=== PATIENT | female | born 1935 | race Caucasian/White ===

== ENCOUNTER → 2016-10-15 | Day surgery (SDC) | payer OTHER ==
[~2016-10-15] VITALS: Ht 167.6 cm; Wt 89.8 kg
[~2016-10-15] MED LIST: AMOX-CLAV 875-1 EACH PO; AMOXIL500 MG PO; ASPIRIN ADULT L81 M2 PO; CARTIA XT120 M1 PO; CRESTOR20 M1 PO; CRESTOR20 M2 PO; CRESTOR20 MG PO; ECOTRIN81 MG PO; FOLIC ACID 1 MG PO; GLIPIZIDE ER2.5 M1 PO; GLIPIZIDE5 MG PO; HYDROCHLOROTHIA25 M1 PO; HYDRODIURIL 112.5 M1 PO; HYDRODIURIL 2525 MG PO; IRON325 M3 PO; K-DUR 20MEQ TA20 MEQ PO; KLOR-CON20 MEQ PO; KOMBIGLYZE XR 11 TER PO; KOMBIGLYZE XR1 EAC2 PO; LEVOTHYROXIN0.088 MG PO; LEVOTHYROXINE100 MC1 PO; LISINOPRIL20 M1 PO; LISINOPRIL40 MG PO; LOPRESSOR 25MG25 MG PO; MACROBID 100 M100 MG PO; MASON NATURAL325 MG PO; NEIGHBOR P PO; PAROXETINE HYDR20 MG PO; PAROXETINE20 MG PO; PAXIL20 M1 PO; SUPER B PO; SYNTHROID0.1 MG PO; SYNTHROID100 MCG PO; SYNTHROID88 MCG PO; TAZTIA XT300 MG PO; TYLENOL #31 TAB PO; VITAMIN B121000 MC2 PO; VITAMIN C250 M1 PO; VITAMIN C500 M1; VITAMIN D1000 IU PO; ZESTRIL40 MG PO
--- NOTE | 2016-10-15 11:55 | Operative Report ---
Operative/Inv Procedure Report Surgery Date: 10/15/16 Name of Procedure: cystoscopy: bilateral retrograde pyelogram Pre-Operative Diagnosis: gross hematuria Post-Operative Diagnosis: urethral mass Estimated Blood Loss: scant Surgeon/Product Delivery Specialist: NOHEMI ANGELA MD Anesthesia: moderate sedation Specimens: none Complications: none Operative/Procedure Note Note: The patient was taken to the operating room and placed on the OR table in supine position. Time out was performed, with the patient awake, to confirm correct identity, laterality, procedure, and other pertinent intra-operative information. After adequate anesthesia and antibiotics, the patient was then placed lithotomy stirrups draped and prepped in the usual surgical fashion. A 22 Khmer cystoscope sheath with a 30 angle lens was inserted without difficulty. Upon entering the bladder, the bladder was noted to be free of tumor free of stone, with both orifices in their orthotopic position. Bilateral clear efflux of urine was seen from both orifices. The left orifice was intubated with an open ended ureteral catheter and retrograde pyelogram was performed revealing no stone/tumor and brisk excretion of contrast material. After removing the catheter from the left side, the right orifice was intubated, and retrograde pyelogram was performed on the right side. There was no filling defect on the right side as well, with brisk efflux of contrast. Having found NO pathology on either side, the bladder was then hydrodistended 2 with the irrigation fluid at 40 cm above the symphysis pubis. No increased petechiae was noted. No Hunner's ulceration was noted. Of note the patient has a mildly denuded bladder with hypervascularity consistent with history of IC. There was no terminal bleed. After completing the retrograde pyelograms bilaterally, and the hydrodistention, the bladder was then drained and the cystoscope was removed. The pt. tolerated the procedure well was then taken to the recovery room in satisfactory condition. The patient is to be discharged home to follow up in few weeks time for re-evaluation and plans. 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 Discharge Disposition: Same Day Admissions Additional Comments: to schedule pelvic MRI with manpreet. CC: NOHEMI ANGELA MD
--- NOTE | 2016-10-16 11:24 | RADIOLOGY REPORT ---
EXAMINATION: XR ABDOMEN CLINICAL INDICATION: Bilateral ureteroscopy. COMPARISON: X-ray of the kidneys dated 06/26/2016. Ultrasound of the kidneys dated 06/26/2016. TECHNIQUE: 5 views of the abdomen were obtained from a bilateral retrograde pyelogram. FINDINGS: The right-sided pelvicalyceal system and proximal ureter appear relatively unremarkable. There is some mild fullness which may be secondary to injection. On the left, the pelvicalyceal system is not as well filled and there is a question of some irregularity or filling defects but this cannot be assessed from the submitted films. IMPRESSION: Imaging from retrograde pyelogram as described above.
== END ==
LOC: STS 03:54
DX: R31.0 Gross hematuria (principal); N36.8 Other specified disorders of urethra; I10 Essential (primary) hypertension; E11.9 Type 2 diabetes mellitus without complications; Z79.84 Long term (current) use of oral hypoglycemic drugs; E03.9 Hypothyroidism, unspecified; E78.5 Hyperlipidemia, unspecified
CPT/HCPCS: 74000; J0131; J0690; J2250

== ENCOUNTER 2017-11-24 19:45 | Observation (INO) | payer OTHER ==
[~2017-11-24] VITALS: Ht 167.6 cm; Wt 89.8 kg
[~2017-11-24 19:45] MED LIST changes: -ASPIRIN ADULT L81 M2 PO; +ASPIRIN81 M4 PO; +KLOR-CON M2020 ME1 PO; -KLOR-CON20 MEQ PO; -KOMBIGLYZE XR1 EAC2 PO; +KOMBIGLYZE XR1 EACH PO; -LISINOPRIL20 M1 PO; +LISINOPRIL40 M1 PO; +METOPROLOL TART25 M1 PO
--- NOTE | 2017-11-24 20:08 | ED GENERAL ADULT ---
History of Present Illness General Chief Complaint: General Adult Stated Complaint: SENT FOR BLOOD TRANSFUSION Source: patient, family, old records, PCP Exam Limitations: no limitations Vital Signs & Intake/Output Vital Signs & Intake/Output Vital Signs Date Time Temp Pulse Resp B/P B/P Pulse O2 O2 Flow FiO2 Mean Ox Delivery Rate 11/25 0858 97.9 77 22 190/79 98 Room Air 11/25 0652 97.7 80 22 182/79 98 Room Air 11/25 0603 98.0 88 24 180/79 99 Room Air 11/25 0536 97.7 70 16 131/67 98 Room Air 11/25 0219 97.6 72 16 142/67 98 Room Air 11/24 2233 97.1 87 22 141/66 11/24 2204 97.1 87 22 141/66 97 Room Air 11/24 1955 97.5 92 18 166/79 99 Room Air ED Intake and Output 11/25 0000 11/24 1200 Intake Total Output Total Balance Patient 198 lb Weight Weight Reported by Patient Measurement Method Allergies Coded Allergies: ciprofloxacin (From CIPRO) (DIARRHEA 10/10/16) Triage Note: 82F HERE FOR BLOOD TRANSFUSION AFTER BLOOD COUNTS TODAY WERE LOW. ARRIVES PALE, REPORTS WEAKNESS AND DIZZINESS, FATIGUE. DENIES SOB AT REST BUT CHRISTENSEN. DENIES BLACK OR BLOODY STOOLS. DENIES ABD PAIN -N/V/D. DENIES CP OR PALPITATIONS. IV ESTABLISHED IN TRIAGE AND BLOOD DRAWN AND SENT TO LAB (BLUE SSTX2 LAV BROWN PINK) Triage Nurses Notes Reviewed? yes HPI: Patient has been having increasing dyspnea on exertion. Patient denies any chest pain or chest tightness. There is no orthopnea. There is no anorexia. Patient attempted to follow-up with her restaurant hospitality manager. He was on vacation so she saw her row boss. She had outpatient blood work which showed H&H of 03/18. Patient was instructed transfusion. Patient does have an appointment with her restaurant hospitality manager for next week. Patient has required transfusions in the past. (Kristen FERGUSON,Aj Cramer) Reconcile Medications Aspirin (Aspirin*) 81 MG TAB.CHEW 1 TAB PO DAILY HEART (Reported) Diltiazem HCl (Cartia Xt) 120 MG CAP.ER.24H 1 CAP PO DAILY HEART (Reported) Ferrous Sulfate (IRON) 325 MG TABLET 1 TAB PO TID SUPPLEMENT (Reported) Glipizide (Glipizide ER) 2.5 MG TAB.ER.24 1 TAB PO DAILY DIABETES (Reported) Hydrochlorothiazide 25 MG TABLET 1 TAB PO AD BP (Reported) Levothyroxine Sodium 100 MCG TABLET 1 TAB PO DAILY THYROID (Reported) Lisinopril 40 MG TABLET 1 TAB PO DAILY BP (Reported) Metoprolol Tartrate 25 MG TABLET 1 TAB PO BID HEART (Reported) Paroxetine HCl (Paxil) 20 MG TABLET 1 TAB PO DAILY DEPRESSION (Reported) Potassium Chloride (Klor-Con M20) 20 MEQ TAB.ER.PRT 1 TAB PO DAILY SUPPLEMENT (Reported) Rosuvastatin Calcium (Crestor) 20 MG TABLET 1 TAB PO DAILY CHOLESTEROL ( Reported) Saxagliptin HCl/Metformin HCl (Kombiglyze XR 5-500 MG Tablet) 5 MG-500 MG TBMP.24HR 1 TAB PO DAILY DIABETES (Reported) (Antonina FERGUSON,Kirk) Past History Travel History Traveled to [place] past 21 day No Medical History Any Pertinent Medical History? see below for history Neurological: NONE EENT: NONE Cardiovascular: hypertension, hyperlipidemia, aortic valve replacement Respiratory: NONE Gastrointestinal: hx of angiodysplasia hx of gastritis hx diverticular disease Hepatic: CHOLEDOCHOLITHIASIS Renal: NONE Musculoskeletal: NONE Psychiatric: NONE Endocrine: diabetes, hypothyroidism, CALCIUM DEPOSITS ON THYROID Blood Disorders: anemia Cancer(s): breast cancer OFFICE ADMINISTRATOR/Reproductive: hx of ovarian mass History of MRSA: No History of VRE: No History of CDIFF: No Surgical History Surgical History: hysterectomy (TOTAL), Partial Thyroidectomy, Modified radical disssection of the right breast, Hysterectomy, CABG, AVR GALL STONE REMOVAL ERCP Psychosocial History Who do you live with Significant Other Services at Home None What is your primary language Setswana Tobacco Use: Never used ETOH Use: denies use Illicit Drug Use: denies illicit drug use Family History Hx Contributory? No (Kristen FERGUSON,Aj Cramer) Review of Systems Review of Systems Constitutional: Reports: no symptoms. EENTM: Reports: no symptoms. Respiratory: Reports: see HPI, short of breath (WITH EXERTION). Cardiovascular: Reports: no symptoms. GI: Reports: no symptoms. Genitourinary: Reports: no symptoms. Musculoskeletal: Reports: no symptoms. Skin: Reports: no symptoms. Neurological/Psychological: Reports: no symptoms. Hematologic/Endocrine: Reports: no symptoms. Immunologic/Allergic: Reports: no symptoms. All Other Systems: Reviewed and Negative (Kristen FERGUSON,Aj Cramer) Physical Exam Physical Exam General Appearance: well developed/nourished, alert, awake, anxious, moderate distress Head: atraumatic, normal appearance Eyes: Bilateral: PERRL, EOMI, pale conjunctivae. Ears, Nose, Throat: normal pharynx, normal ENT inspection, hearing grossly normal Neck: normal inspection, supple, full range of motion Respiratory: normal breath sounds, chest non-tender, no respiratory distress, lungs clear Cardiovascular: regular rate/rhythm, normal peripheral pulses Gastrointestinal: normal bowel sounds, soft, non-tender, no organomegaly Back: normal inspection, normal range of motion Extremities: normal inspection, normal capillary refill, normal range of motion, no edema, [place] Neurologic/Psych: no motor/sensory deficits, awake, alert, oriented x 3, normal mood/affect Skin: warm/dry, PALE Core Measures ACS in differential dx? No CVA/TIA Diagnosis: No Sepsis Present: No Sepsis Focused Exam Completed? No (Kristen FERGUSON,Aj Cramer) Progress Differential Diagnoses I considered the following diagnoses in my evaluation of the patient: Plan of Care: Orders Procedure Date/time Status Heart Healthy Diet 11/25 B Active BLOOD PRODUCT PICKUP 11/25 0552 Active BLOOD PRODUCT PICKUP 11/25 0138 Active BLOOD PRODUCT PICKUP 11/24 220 Active LEUKOCYTE POOR (PACKED CELLS) 11/[address] in observation 11/24 2018 Active ED Holding Orders 11/24 2018 Active Patient Data 11/24 2018 Active Vital Signs 11/24 2018 Active Code Status 11/24 2018 Active Intake & Output 11/24 2002 Active EKG 11/24 1952 Active TROPONIN LEVEL 11/24 1946 Complete COMPREHENSIVE METABOLIC PANEL 11/24 1946 Complete CBC WITHOUT DIFFERENTIAL 11/24 1946 Complete TYPE & SCREEN (NOT X-MATCH) 11/24 1946 Active Laboratory Tests 11/24/17 2000: Anion Gap 11, Estimated GFR 39 L, BUN/Creatinine Ratio 17.7, Glucose 194 H, Calcium 8.8, Total Bilirubin 0.7, AST 15, ALT 24, Alkaline Phosphatase 63, Troponin I 0.01, Total Protein 6.1 L, Albumin 3.6, Globulin 2.5, Albumin/ Globulin Ratio 1.4, CBC w Diff NO MAN DIFF REQ, RBC 2.37 L, MCV 83.8, MCH 25.6 L, MCHC 30.5 L, RDW 23.3 H, MPV 8.3, Gran % 77.2 H, Lymphocytes % 8.5 L, Monocytes % 12.0 H, Eosinophils % 1.6, Basophils % 0.7, Absolute Granulocytes 3.1, Absolute Lymphocytes 0.3 L, Absolute Monocytes 0.5, Absolute Eosinophils 0.1, Absolute Basophils 0 Initial ED EKG: NSR, nonspecific ST T wave chg Prior EKG: unchanged Hand-Off Endorsed To: Kirk Sarkar MD Endorsed Time: 0700 Pending: other (TRANSFUSION) (Aj Peterson MD) Comments: Family requested consultation from Dr. Castillo today. He saw her in the office yesterday OVEN HEATER and she can schedule followup. (Kirk Sarkar MD) Departure Departure Clinical Impression Primary Impression: Symptomatic anemia Referrals: Darci Sorto MD (PCP/Family) Marco Antonio Pascual MD Additional Instructions: FOLLOW UP WITH DR. PASCUAL RETURN IF SYMPTOMS WORSEN OR FOR ANY CONCERNS Departure Forms: Customer Survey General Discharge Information (Aj Peterson MD) Departure Time of Disposition: 1051 Disposition: HOME OR SELF CARE Condition: Stable (Kirk Sarkar MD) Critical Care Note Critical Care Note Critical Care Time: non-applicable (Aj Peterson MD) ED Attending Observation Initial Observation Note: I have seen and personally examined CHRISTOPHER LEE on 11/24/17 at 2019. I agree with the current emergency department documentation. The disposition (admission or discharge) is uncertain at this time, she needs a period of observation for the following reason(s): [Symptomatic anemia. Patient will require 3 units of packed red blood cells deliver slowly. Patient will need close observation given her cardiac history and the amount of fluid that she will be receiving with the blood transfusion. If the patient is feeling better after the transfusion she will be discharged with follow-up with her restaurant hospitality manager however if she is not feeling any better she might require admission to the hospital.] The ED Nurse caring for this patient has been personally informed as to what the patient is being observed for. Observation Re-Evaluation: I have reevaluated CHRISTOPHER LEE on 11/25/17 at 0454. The physical findings that support the continued need to observe this patient include [PT RESTING COMFORTABLE WHILE RECEIVING THE TRANSFUSION. COLOR IMPROVING. NO CHEST PAIN, NO SHORTNESS OF BREATH. LUNGS CTA B/L, ABD SOFT.]. (Kristen FERGUSON,Aj Cramer) Observation Discharge: I have reevaluated CHRISTOPHER LEE on 11/25/17 at 1050. The patient is: (x): Stable for discharge (): To be admitted to Nursing Floor (): To be placed in Observation on Nursing Floor (): For transfer to other facility The patient was being observed for symptomatic anemia As a result of that observation, I have determined stable for discharge home. (Antonina FERGUSON,Kirk)
[2017-11-24 20:55] LABS: ABSOLUTE BASOPHIL COUNT 0 /CUMM (0.0-0.2); ABSOLUTE EOSINOPHIL COUNT 0.1 /CUMM (0.0-0.7); ABSOLUTE GRANULOCYTE CT 3.1 /CUMM (1.4-6.5); ABSOLUTE LYMPH COUNT 0.3 /CUMM (1.2-3.4); ABSOLUTE MONOCYTE COUNT 0.5 /CUMM (0.10-0.60); BASOPHIL % 0.7 % (0.0-2.0); EOSINOPHIL % 1.6 % (0-5); GRANULOCYTE % 77.2 % (42.2-75.2); MEAN CORPUSCULAR HGB 25.6 PG (27.0-31.0); MEAN CORPUSCULAR HGB CONC 30.5 G/DL (33.0-37.0); MEAN CORPUSCULAR VOLUME 83.8 FL (81.0-99.0); MEAN PLATELET VOLUME 8.3 FL (7.4-10.4); PLATELET COUNT 163 /CUMM (130-400); RBC DISTRIBUTION WIDTH 23.3 % (11.5-14.5); RED BLOOD CELL CT 2.37 /CUMM (4.20-5.40); WHITE BLOOD CELL COUNT 4.1 /CUMM (4.8-10.8)
[2017-11-24 20:59] LABS: HEMATOCRIT 19.8 % (37-47)
[2017-11-25] MEDS ORDERED: CARTIA XT120 M1 PO (08:05)
[2017-11-25 11:32] VITALS: BP 158/70
== END 2017-11-25 12:00 ==
LOC: ERH 19:45 → ERHI 20:19
PROVIDERS: Emergency Medicine
DX: D64.9 Anemia, unspecified (principal); E11.9 Type 2 diabetes mellitus without complications; Z79.84 Long term (current) use of oral hypoglycemic drugs; E03.9 Hypothyroidism, unspecified; I10 Essential (primary) hypertension; E78.5 Hyperlipidemia, unspecified; K29.70 Gastritis, unspecified, without bleeding; K55.20 Angiodysplasia of colon without hemorrhage; K57.90 Diverticulosis of intestine, part unspecified, without perforation or abscess without bleeding; Z85.3 Personal history of malignant neoplasm of breast; Z95.2 Presence of prosthetic heart valve; R06.02 Shortness of breath; Z95.1 Presence of aortocoronary bypass graft
CPT/HCPCS: 6090; 86920; 93005; 93010; 96374; G0378; J1940; P9016

== ENCOUNTER 2018-03-12 09:31 | Inpatient (IN) | payer OTHER ==
[~2018-03-12] VITALS: Ht 167.6 cm; Wt 84.0 kg
[~2018-03-12 09:31] MED LIST changes: +HYDROCHLOROTH12.5 M2 PO; -HYDROCHLOROTHIA25 M1 PO; -LEVOTHYROXINE100 MC1 PO; +LEVOTHYROXINE88 MCG PO
--- NOTE | 2018-03-12 11:27 | ED GENERAL ADULT ---
History of Present Illness General Chief Complaint: Nausea, Vomiting, Diarrhea Stated Complaint: SENT IN BY MD JAUREGUI FOR DIARRHEA Source: patient Exam Limitations: no limitations Vital Signs & Intake/Output Vital Signs & Intake/Output Vital Signs Date Time Temp Pulse Resp B/P B/P Pulse O2 O2 Flow FiO2 Mean Ox Delivery Rate 03/12 1800 97 Room Air 03/12 1635 97.7 74 16 165/68 97 Room Air 03/12 1330 97.7 59 18 159/70 98 Room Air 03/12 0936 96.4 63 15 134/61 98 Room Air Room Air Allergies Coded Allergies: ciprofloxacin (From CIPRO) (DIARRHEA 03/12/18) Reconcile Medications Aspirin (Aspirin*) 81 MG TAB.CHEW 1 TAB PO DAILY HEART (Reported) Diltiazem HCl (Cartia Xt) 120 MG CAP.ER.24H 1 CAP PO DAILY HEART (Reported) Ferrous Sulfate (IRON) 325 MG TABLET 1 TAB PO TID SUPPLEMENT (Reported) Glipizide (Glipizide ER) 2.5 MG TAB.ER.24 1 TAB PO DAILY DIABETES (Reported) Hydrochlorothiazide 12.5 MG TABLET 1 TAB PO DAILY WATER RETENTION (Reported) Levothyroxine Sodium 88 MCG TABLET 1 TAB PO DAILY AC THYROID (Reported) Linagliptin (Tradjenta) 5 MG TABLET 1 TAB PO DAILY DIABETES (Reported) Lisinopril 40 MG TABLET 1 TAB PO DAILY BP (Reported) Metoprolol Succinate 50 MG TAB.ER.24H 1 TAB PO DAILY HEART (Reported) Paroxetine HCl (Paxil) 20 MG TABLET 1 TAB PO DAILY DEPRESSION (Reported) Potassium Chloride (Klor-Con M20) 20 MEQ TAB.ER.PRT 1 TAB PO DAILY SUPPLEMENT (Reported) Rosuvastatin Calcium (Crestor) 20 MG TABLET 1 TAB PO DAILY CHOLESTEROL ( Reported) Triage Note: PT SENT TO ED BY DR. MARILUZ CALIX FOR DIARRHEA. PT REPORTS SHE HAS HAD MULTIPLE EPISODES OF MUCUS-LIKE DIARRHEA X 5 DAYS. PT RECENTLY GOT BACK FROM A [place] AND HAS HAD SOME MILD LLQ ABD CRAMPING WITH THE DIARRHEA. DENIES N/V/CHILLS. NO ONE ELSE ON [place] HAS DIARRHEA. Triage Nurses Notes Reviewed? yes Onset: Gradual Duration: day(s): Timing: constant HPI: 83-year-old female with a history of hypertension, hyperlipidemia, aortic valve replacement, diabetes, hypothyroid, breast cancer, ovarian cancer presenting with lower abdominal pain with left greater than right, and mucous diarrhea 4 days after returning from a cruise to the [place]. No other travelers have been sick. Endorses fecal urgency and incontinence, with 3-4 episodes of diarrhea per day. Denies bloody stools. Endorses black stools at baseline secondary to iron supplements. Denies fevers, nausea, vomiting, dysuria. Is currently followed by Dr. Jauregui for intermittent bloody stools, and has a colonoscopy scheduled for Friday. (Lucia Beltran) Past History Travel History Traveled to [place] past 21 day No Medical History Any Pertinent Medical History? see below for history Neurological: NONE EENT: NONE Cardiovascular: hypertension, hyperlipidemia, aortic valve replacement Respiratory: NONE Gastrointestinal: hx of angiodysplasia hx of gastritis hx diverticular disease Hepatic: CHOLEDOCHOLITHIASIS Renal: NONE Musculoskeletal: NONE Psychiatric: NONE Endocrine: diabetes, hypothyroidism, CALCIUM DEPOSITS ON THYROID Blood Disorders: anemia Cancer(s): breast cancer CAREER RESOURCE SPECIALIST/Reproductive: hx of ovarian mass History of MRSA: No History of VRE: No History of CDIFF: No Surgical History Surgical History: hysterectomy (TOTAL), Partial Thyroidectomy, Modified radical disssection of the right breast, Hysterectomy, CABG, AVR GALL STONE REMOVAL ERCP Psychosocial History Who do you live with Significant Other Services at Home None What is your primary language Indonesian Tobacco Use: Never used ETOH Use: denies use Illicit Drug Use: denies illicit drug use Family History Hx Contributory? No (Lucia Beltran) Review of Systems Review of Systems Constitutional: Reports: no symptoms. EENTM: Reports: no symptoms. Respiratory: Reports: no symptoms. Cardiovascular: Reports: no symptoms. GI: Reports: see HPI. Genitourinary: Reports: no symptoms. Musculoskeletal: Reports: no symptoms. Skin: Reports: no symptoms. Neurological/Psychological: Reports: no symptoms. Hematologic/Endocrine: Reports: no symptoms. Immunologic/Allergic: Reports: no symptoms. (Lucia Beltran) Physical Exam Physical Exam General Appearance: well developed/nourished, no apparent distress, alert, awake , comfortable Head: atraumatic, normal appearance Eyes: Bilateral: normal appearance. Neck: normal inspection Respiratory: normal breath sounds, lungs clear Cardiovascular: regular rate/rhythm Gastrointestinal: soft, non-tender Rectal: heme positive stool (brown stool) Back: normal inspection Extremities: normal inspection Neurologic/Psych: awake, alert, oriented x 3, normal gait, normal mood/affect Skin: intact, normal color, warm/dry Core Measures ACS in differential dx? No CVA/TIA Diagnosis: No Sepsis Present: No Sepsis Focused Exam Completed? No (Joanne MORRIS,Lucia) Progress Differential Diagnoses I considered the following diagnoses in my evaluation of the patient: [Enteritis versus colitis versus diverticulitis versus food poisoning versus traveler's diarrhea] Plan of Care: Orders Procedure Date/time Status Heart Healthy Diet 03/12 D Active Precautions 03/12 1811 Active Weight 03/12 1744 Active Vital Signs 03/12 1744 Active Teach/Educate 03/12 1744 Active Pain Treatment and Response 03/12 1744 Active Nutritional Intake, Monitor 03/12 1744 Active Isolation 03/12 1744 Active Intake & Output 03/12 1744 Active Patient Care Conference 03/12 1744 Active Activity/Ambulation 03/12 1744 Active STOOL: R/O YERSINIA 03/12 1718 Active CULTURE,STOOL 03/12 1637 Active OVA AND PARASITE ANTIGENS 03/12 1637 Active Patient Data 03/12 1541 Active ED Holding Orders 03/12 1539 Active Admit to inpatient 03/12 1539 Active Vital Signs 03/12 1539 Active Code Status 03/12 1539 Active CULTURE,STOOL 03/12 1454 Active C.DIFFICILE 03/12 1454 Active Intake & Output 03/12 1153 Active URINALYSIS 03/12 1110 Complete LIPASE 03/12 1110 Complete HEPATIC FUNCTION PANEL 03/12 1110 Complete CBC WITHOUT DIFFERENTIAL 03/12 1110 Complete BASIC METABOLIC PANEL 03/12 1110 Complete Current Medications Sig/Demetra Start time Last Medication Dose Stop Time Status Admin Rifaximin 200 MG TID 03/12 1633 UNVr (Xifaxan 200MG) Laboratory Tests 03/12/18 1148: Anion Gap 10, Estimated GFR 39 L, BUN/Creatinine Ratio 13.1, Glucose 151 H, Calcium 9.1, Total Bilirubin 0.4, Direct Bilirubin 0.1, AST 24, ALT 30, Alkaline Phosphatase 57, Total Protein 5.9 L, Albumin 3.2 L, Lipase 580 H, CBC w Diff NO MAN DIFF REQ, RBC 3.20 L, MCV 84.4, MCH 27.6, MCHC 32.7 L, RDW 15.1 H, MPV 6.6 L, Gran % 81.7 H, Lymphocytes % 7.9 L, Monocytes % 8.6, Eosinophils % 1.1 , Basophils % 0.7, Absolute Granulocytes 4.4, Absolute Lymphocytes 0.4 L, Absolute Monocytes 0.5, Absolute Eosinophils 0.1, Absolute Basophils 0 03/12/18 1138: Urinalysis LIGHT H, Urine Color YEL, Urine Clarity CLEAR, Urine pH 6.0, Ur Specific [place] >= 1.030, Urine Protein TRACE H, Urine Ketones NEG, Urine Nitrite NEG, Urine Bilirubin NEG, Urine Urobilinogen 0.2, Ur Leukocyte Esterase TRACE H, Ur Microscopic SEDIMENT EXAMINED, Urine WBC 5-10 H, Ur Epithelial Cells MANY H, Urine Bacteria FEW H, Urine Hemoglobin NEG, Urine Glucose NEG Microbiology 03/12 1718 STOOL: Yersinia Culture - COLB 03/12 1637 STOOL: Cryptosporidium Antigen - COLB 03/12 1637 STOOL: Giardia Antigen (ELIGIO) - COLB 03/12 1637 STOOL: Stool Culture - COLB 03/12 1500 STOOL: Clostridium difficile Toxin A & B - RECD 03/12 1500 STOOL: Stool Culture - RECD Labs shows mild drop in Hg to 8.8 from 9.6 a month ago, pt's basline appears to be around 8-10. Discussed with Dr. Jauregui and will admit due to concern for worsening GI bleed in the setting of infection. Stool culture sent. Discussed with hospitalist, MOD, and EDMD. CT scan IMPRESSION: Heterogeneous 3.0-3.5 cm mass of the pancreatic head. Enlarged peripancreatic lymph nodes. This is new since 09/12/2015. Choledocholithiasis with 5 mm and 2 mm calculi and mild intrahepatic biliary ductal dilatation that has slightly increased. There is a soft tissue mass in the lower abdomen anteriorly, arising from or invading the posterior wall of a small bowel loop. This measures 4.4 x 4.7 x 5.1 cm and is a new finding. There is a 1.2 cm left renal lesion at the superior pole which measured 1.0 cm in 2014. Several lower lobe pulmonary nodules, the largest measuring 7 mm in the lingula and right lower lobe, which have slightly increased in size. Pt informed of the above incidental findings. Labs showed elevated lipase to 580. Suspect gallstone pancreatitis, although pt has benign abdominal exam. Discussed with Dr. Crain and he is aware of CT findings. Instructed to start xifaxan for traveler's diarrhea. Initial ED EKG: none (Lucia Beltran) Departure Departure Disposition: STILL A PATIENT Condition: Stable Clinical Impression Primary Impression: Gastrointestinal hemorrhage Secondary Impressions: Anemia, Travelers' diarrhea Referrals: Noreen FERGUSON,Darci Luque (PCP/Family) Departure Forms: Customer Survey General Discharge Information Admission Note Spoke With: Nalini Brower MD Documentation of Exam: Documentation of any treatments & extenuating circumstances including Concerns Regarding Discharge (functional status, medication knowledge or non-compliance, living conditions, etc.) that warrant an admission rather than observation: [IV fluids, hemodynamic monitoring, serial CBC's, abx, GI evaluation, possible ERCP] (Lucia Beltran) PA/DIAGNOSTIC RADIOLOGIST Co-Sign Statement Statement: ED Attending supervision documentation- [X] I saw and evaluated the patient. I have also reviewed all the pertinent lab results and diagnostic results. I agree with the findings and the plan of care as documented in the PA's/DIAGNOSTIC RADIOLOGIST's documentation. [X] I have reviewed the ED Record and agree with the PA's/DIAGNOSTIC RADIOLOGIST's documentation. [] Additions or exceptions (if any) to the PAs/DIAGNOSTIC RADIOLOGIST's note and plan are summarized below: [Patient to be admitted for lower GI bleed, gastroenterology consultation, may require colonoscopy, serial hematocrits] (Kristen FERGUSON,Aj Cramer) Critical Care Note Critical Care Note Critical Care Time: 30-74 min (Lucia Beltran)
[2018-03-12 11:59] LABS: ABSOLUTE BASOPHIL COUNT 0 /CUMM (0.0-0.2); ABSOLUTE EOSINOPHIL COUNT 0.1 /CUMM (0.0-0.7); ABSOLUTE GRANULOCYTE CT 4.4 /CUMM (1.4-6.5); ABSOLUTE LYMPH COUNT 0.4 /CUMM (1.2-3.4); ABSOLUTE MONOCYTE COUNT 0.5 /CUMM (0.10-0.60); BASOPHIL % 0.7 % (0.0-2.0); EOSINOPHIL % 1.1 % (0-5); GRANULOCYTE % 81.7 % (42.2-75.2); MEAN CORPUSCULAR HGB 27.6 PG (27.0-31.0); MEAN CORPUSCULAR HGB CONC 32.7 G/DL (33.0-37.0); MEAN CORPUSCULAR VOLUME 84.4 FL (81.0-99.0); MEAN PLATELET VOLUME 6.6 FL (7.4-10.4); PLATELET COUNT 246 /CUMM (130-400); RBC DISTRIBUTION WIDTH 15.1 % (11.5-14.5); WHITE BLOOD CELL COUNT 5.4 /CUMM (4.8-10.8)
[2018-03-12] MEDS ORDERED: TRADJENTA5 M1 PO (12:06)
[2018-03-12] MEDS ORDERED: METOPROLOL SUCC50 M2 PO (12:07)
--- NOTE | 2018-03-12 15:30 | CT SCAN REPORT ---
EXAMINATION: CT ABDOMEN AND PELVIS WITH CONTRAST CLINICAL INFORMATION: Lower abdominal pain with diarrhea COMPARISON: Clinical history studies, the most recent chest CT dictated 09/12/2015 TECHNIQUE: Multidetector volumetric imaging was performed of the abdomen and pelvis following IV administration of 95 mL of Optiray 320 intravenous contrast. Sagittal and coronal reformatted images were obtained on the technologist's workstation. DLP: 528 mGy-cm FINDINGS: LUNG BASES: Several nodules at the lung bases, including a 7 mm nodule in the lingula inferiorly, end a 7 mm nodule in the right lower lobe. These have slightly increased in size. LIVER, GALLBLADDER, AND BILIARY TREE: Mild biliary ductal dilatation, similar to the previous study. There are no liver lesions. Coarse calcifications of the gallbladder which are less prominent than the prior study. There is a 5 mm calcification within the mid aspect of the common bile duct, and a 2 mm calcification in the distal aspect of the common bile duct. PANCREAS: The pancreatic head is enlarged and slightly heterogeneous. This is new or significantly more conspicuous from the previous study and measures approximately 3 cm in size, concerning for a pancreatic mass. Pancreatic body is atrophied with a stable cyst/pseudocyst. SPLEEN: Unremarkable. ADRENAL GLANDS: Stable 1.5 cm low-density lesion in the left adrenal gland. KIDNEYS AND URETERS: There is a 1.2 cm lesion at the superior pole of the left kidney which is exophytic. This measured 1.0 cm on a 2015 study. BLADDER: Unremarkable. GASTROINTESTINAL TRACT: There is a soft tissue mass in the anterior lower abdomen measuring approximately 4.4 x 4.7 x 5.1 cm arising from or invading into the posterior wall of a pelvic small bowel loop. This is a new finding. ABDOMINAL WALL: No significant hernia is appreciated. LYMPH NODES: There are enlarged peripancreatic lymph nodes including a 1.7 lymph node at the bifurcation of the superior mesenteric artery. VASCULAR: Dilated and tortuous left ovarian vein as demonstrated previously. PELVIC VISCERA: The uterus is been removed. OSSEOUS STRUCTURES: No suspicious lesions or acute abnormality. IMPRESSION: Heterogeneous 3.0-3.5 cm mass of the pancreatic head. Enlarged peripancreatic lymph nodes. This is new since 09/12/2015. Choledocholithiasis with 5 mm and 2 mm calculi and mild intrahepatic biliary ductal dilatation that has slightly increased. There is a soft tissue mass in the lower abdomen anteriorly, arising from or invading the posterior wall of a small bowel loop. This measures 4.4 x 4.7 x 5.1 cm and is a new finding. There is a 1.2 cm left renal lesion at the superior pole which measured 1.0 cm in 2015. Several lower lobe pulmonary nodules, the largest measuring 7 mm in the lingula and right lower lobe, which have slightly increased in size.
--- NOTE | 2018-03-12 15:57 | History & Physical ---
Grayson FERGUSON,Marcia 03/12/18 1557: General Information and HPI MD Statement: I have seen and personally examined CHRISTOPHER LEE and documented this H&P. The patient is a 83 year old F who presented with a patient stated chief complaint of [diarrhea]. Source of Information: patient, family, old records Exam Limitations: no limitations History of Present Illness: Patient is an 83-year-old female with past medical history of hypertension, depression,chronic kidney disease, anxiety and depression, hypothyroidism, right sided breast cancer status post radical mastectomy, hysterectomy, ovarian cancer status post bilateral nephrectomy and recent completion of 8 week course of radiation therapy, history of chronic anemia requiring transfusions over the past few months, history of GI bleed s/p EGD and colonoscopy in 2011 showing cecal vascular malformation/ectasias, diverticulosis and gastritis, and enteroscopy showing small bowel bleeding secondary to GI angiodysplasia presenting this admission with chief complaint of diarrhea, dark stools and small amount of brb. Patient reports that she was recently on a cruise to the [facility] over the past 1-2 weeks. States that 4 days prior to admission while on the cruise she developed a signifcant amount of loose watery/semiformed stool. States that she has some mild abdominal cramping and fecal urgency. State she has had one or two accidents. Patient reports that she has seen some specks of bright red blood in the stools. Reports stool has been black. States that this is not significantly different than before as she takes iron supplements daily. Patient reported occasional lightheadedness. States that she has been eating however it appears to be making the diarrhea worse. Patient denies nausea/vomitting, fever/chills. Patient reports that no one else in close contact with her was sick. Patient reports that she is scheduled to have a colonoscopy with Dr. Jauregui on Friday for workup for her anemia. Patient reports she follow up with Dr. Mccarthy (oncologist) for her ovarian cancer. In the ED, patient had a CT Abdomen/Pelvis which revealed a pancreatic mass and a mass close to/invading the small intestine. Patient reports that this is a new finding for her. Allergies/Medications Allergies: Coded Allergies: ciprofloxacin (From CIPRO) (DIARRHEA 03/12/18) Home Med list Aspirin (Aspirin*) 81 MG TAB.CHEW 1 TAB PO DAILY HEART (Reported) Diltiazem HCl (Cartia Xt) 120 MG CAP.ER.24H 1 CAP PO DAILY HEART (Reported) Ferrous Sulfate (IRON) 325 MG TABLET 1 TAB PO TID SUPPLEMENT (Reported) Glipizide (Glipizide ER) 2.5 MG TAB.ER.24 1 TAB PO DAILY DIABETES (Reported) Hydrochlorothiazide 12.5 MG TABLET 1 TAB PO DAILY WATER RETENTION (Reported) Levothyroxine Sodium 88 MCG TABLET 1 TAB PO DAILY AC THYROID (Reported) Linagliptin (Tradjenta) 5 MG TABLET 1 TAB PO DAILY DIABETES (Reported) Lisinopril 40 MG TABLET 1 TAB PO DAILY BP (Reported) Metoprolol Succinate 50 MG TAB.ER.24H 1 TAB PO DAILY HEART (Reported) Paroxetine HCl (Paxil) 20 MG TABLET 1 TAB PO DAILY DEPRESSION (Reported) Potassium Chloride (Klor-Con M20) 20 MEQ TAB.ER.PRT 1 TAB PO DAILY SUPPLEMENT (Reported) Rosuvastatin Calcium (Crestor) 20 MG TABLET 1 TAB PO DAILY CHOLESTEROL ( Reported) Vancomycin HCl 125 MG CAPSULE 1 TAB PO Q6H C.DIF Past History Travel History Traveled to [place] past 21 day No Medical History Neurological: NONE EENT: NONE Cardiovascular: hypertension, hyperlipidemia, aortic valve replacement Respiratory: NONE Gastrointestinal: hx of angiodysplasia hx of gastritis hx diverticular disease Hepatic: CHOLEDOCHOLITHIASIS Renal: NONE Musculoskeletal: NONE Psychiatric: NONE Endocrine: diabetes, hypothyroidism, CALCIUM DEPOSITS ON THYROID Blood Disorders: anemia Cancer(s): breast cancer PSYCH SPECIALIST/Reproductive: hx of ovarian mass History of MRSA: No History of VRE: No History of CDIFF: No Surgical History Surgical History: hysterectomy (TOTAL), Partial Thyroidectomy, Modified radical disssection of the right breast, Hysterectomy, CABG, AVR GALL STONE REMOVAL ERCP Past Family/Social History Psychosocial History Who Do You Live With? self Services at Home: None Primary Language: Maldivian ETOH Use: denies use Illicit Drug Use: denies illicit drug use Functional Ability ADLs Independent: dressing, eating, toileting, bathing. Ambulation: independent IADLs Independent: shopping, housework, finances, food prep, telephone, transportation , medication admin. Review of Systems Review of Systems Constitutional: Reports: see HPI. Exam & Diagnostic Data Last 24 Hrs of Vital Signs/I&O Vital Signs Date Time Temp Pulse Resp B/P B/P Pulse O2 O2 Flow FiO2 Mean Ox Delivery Rate 03/12 1835 97.4 64 20 158/72 100 Room Air 03/12 1800 97 Room Air 03/12 1635 97.7 74 16 165/68 97 Room Air 03/12 1330 97.7 59 18 159/70 98 Room Air 03/12 0936 96.4 63 15 134/61 98 Room Air Room Air Intake & Output 03/12 1600 03/12 0800 03/12 0000 Intake Total Output Total Balance Patient 185 lb Weight Weight Reported by Patient Measurement Method Physical Exam General Appearance Alert, Cooperative, No Acute Distress Skin No Rashes Skin Temp/Moisture Exam: Warm/Dry Sepsis Skin Exam (color): Normal for Ethnicity HEENT Atraumatic, Mucous Membr. moist/pink Cardiovascular Regular Rate, Normal S1, Normal S2 Lungs Clear to Auscultation, Normal Air Movement Abdomen Normal Bowel Sounds, Soft, No Tenderness Neurological Normal Speech, Strength at 5/5 X4 Ext, Normal Tone, Sensation Intact, Cranial Nerves 3-12 NL Extremities No Clubbing, No Cyanosis, No Edema, Normal Pulses, No Tenderness/ Swelling Vascular Normal Pulses, Pulses Symmetrical Last 24 Hrs of Labs/Vineet: Laboratory Tests 03/12/18 1148: Anion Gap 10, Estimated GFR 39 L, BUN/Creatinine Ratio 13.1, Glucose 151 H, Calcium 9.1, Total Bilirubin 0.4, Direct Bilirubin 0.1, AST 24, ALT 30, Alkaline Phosphatase 57, Total Protein 5.9 L, Albumin 3.2 L, Lipase 580 H, CBC w Diff NO MAN DIFF REQ, RBC 3.20 L, MCV 84.4, MCH 27.6, MCHC 32.7 L, RDW 15.1 H, MPV 6.6 L, Gran % 81.7 H, Lymphocytes % 7.9 L, Monocytes % 8.6, Eosinophils % 1.1 , Basophils % 0.7, Absolute Granulocytes 4.4, Absolute Lymphocytes 0.4 L, Absolute Monocytes 0.5, Absolute Eosinophils 0.1, Absolute Basophils 0 03/12/18 1138: Urinalysis LIGHT H, Urine Color YEL, Urine Clarity CLEAR, Urine pH 6.0, Ur Specific [place] >= 1.030, Urine Protein TRACE H, Urine Ketones NEG, Urine Nitrite NEG, Urine Bilirubin NEG, Urine Urobilinogen 0.2, Ur Leukocyte Esterase TRACE H, Ur Microscopic SEDIMENT EXAMINED, Urine WBC 5-10 H, Ur Epithelial Cells MANY H, Urine Bacteria FEW H, Urine Hemoglobin NEG, Urine Glucose NEG Microbiology 03/12 1718 STOOL: Yersinia Culture - COLB 03/12 1637 STOOL: Cryptosporidium Antigen - COLB 03/12 1637 STOOL: Giardia Antigen (VINEET) - COLB 03/12 1637 STOOL: Stool Culture - COLB 03/12 1500 STOOL: Clostridium difficile Toxin A & B - RECD 03/12 1500 STOOL: Stool Culture - RECD Assessment/Plan Assessment: Patient is an 83-year-old female with past medical history of hypertension, depression,chronic kidney disease, anxiety and depression, hypothyroidism, right sided breast cancer status post radical mastectomy, hysterectomy, ovarian cancer status post bilateral nephrectomy and recent completion of 8 week course of radiation therapy, history of chronic anemia requiring transfusions over the past few months, history of GI bleed s/p EGD and colonoscopy in 2011 showing cecal vascular malformation/ectasias, diverticulosis and gastritis, and enteroscopy showing small bowel bleeding secondary to GI angiodysplasia presenting this admission with chief complaint of diarrhea, dark stools and small amount of brb. On admission: Patient's vital signs are stable. H/H is low however appears close to her baseline. Patient continues to have diarrhea. Patient is very anxious and tearful of her recent CT results. Will need to work patient up for possible cause of diarrhea and GI bleed including infectious causes. Further workup of anemia per GI. 1. Diarrhea r/o infectious causes 2. GI Bleed 3. Pancreatic mass, mass in small intestine seen on CT 4. History of ovarian cancer and breast cancer s/p recent radiation therapy for ovarian cancer 5. Anemia requiring blood transfusions Plan: Admitted to the general medicine floor for further management GI consulted Repeat CBC q8h Monitor vitals q8h Avoid NSAIDs, blood thinners Will obtain records from oncologist Stool cultures, ova and parasite and c.dif Continue home meds- listed in event note DVT PPx: ALPS only Diet: clear liquid diet Code: full code Note: Please contact patient's daughter, Elvia Davis, for any health related. As Ranked By This Provider Problem List: 1. Diarrhea Core Measures/Misc (06/15) Acute Coronary Syndrome ACS Diagnosis: No Congestive Heart Failure Congestive Heart Failure Diagnosis No Cerebrovascular Accident CVA/TIA Diagnosis: No VTE (View Protocol) VTE Risk Factors Age>40 No Mechanical VTE Prophylaxis d/t N/A MechProphylax Ordered No VTE Pharm Prophylaxis d/t Bleeding (Active) Sepsis (View protocol) Sepsis Present: No If YES complete Sepsis Event Note If YES complete Sepsis Event Note Nalini Brower MD 03/12/18 1707: Core Measures/Misc (06/15) Sepsis (View protocol) If YES complete Sepsis Event Note If YES complete Sepsis Event Note Attending MD Review Statement Attending Statement Attending MD Statement: examined this patient, discuss w/resident/PA/OCCUPATIONAL THERAPY TECHNICIAN, agreed w/resident/PA/OCCUPATIONAL THERAPY TECHNICIAN, reviewed EMR data (avail), discussed with nursing, amended to note Attending Assessment/Plan: Patient is an 83-year-old female history significant for hypothyroidism, hypertension, breast cancer diagnosed 15yrs ago s/pradical mastectomy, s/p bilateral oophorectomy for ovarian cnacer recently completed radiation therapy, chronic anemia, chronic kidney disease stage III and depression. History is also significant for GI bleed. In 2011 she had colonoscopy and EGD that revealed bleeding cecal vascular malformation/ectasias which were cauterized as well as gastritis and significant diverticulosis. In 2013 she had enteroscopy that revealed bleeding secondary to gastrointestina angiodysplasia. In August 2015 she presented with symptoms of pneumonia was managed for gram- negative parviz bacteremia as well. During the hospitalization gastrointestinal consult was placed for evaluation of CT scan that revealed multiple gallstones as well as choledocholithiasis. MRCP was done that showed mild to moderate intrahepatic biliary dilatation. This was increased in comparison to dilatation noted in 2013. She had innumerable tiny gallstones. She had multiple pancreatic cysts. Outpatient ERCP was recommended. ERCP was performed in October [address] Ethan Jauregui and reviewed choledocholithiasis. 2 small black stones were extracted. Blood the sphincterectomy was done. Follow-up occlusion cholangiogram was negative. Patient presents today with complaints of diarrhea which began yesterday. She reports returning from a cruise trip to the [facility] yesterday. Her traveling partner does not have any similar symptoms. She denies any nausea vomiting. She does admit to abdominal cramping on and off particularly on the left. She does came to the emergency room for evaluation. In the emergency room she arrived afebrile hemodynamically stable. Stool guaiac was done and was reported to be positive. Incidentally patient did report episode of bright red blood per rectum few weeks ago. She had reported this to her crushing machine operator was scheduled to undergo elective colonoscopy next week. Due to her ongoing diarrhea and heme positive stool during her trip to the medical service for further management. She is currently hemodynamically stable. Hemoglobin level is stable at baseline. On examination She is not in any painful or respiratory distress. Heart sounds are regular. Lungs are clear to auscultation bilaterally. Abdomen is soft with normal bowel sounds. She has mild discomfort in the left lower quadrant with no rebound or guarding. She has no peripheral edema. CT imaging in the emergency room shows a 3 x 3.5 cm heterogeneous mass in the head of the pancreas. New since imaging in 2015. She also has an enlarged peripancreatic lymph nodes. She has choledocholithiasis with 5 mm and 2 mm calculi and a mild intrahepatic biliary ductal dilatation that has also slightly increased. She has a stable cyst/pseudocyst. She has a soft tissue mass in the lower abdomen anteriorly arising from an invading the posterior wall of the small bowel loop. This also is a new finding. There is a left renal lesion 1.2 cm increased from 1.0 cm in 2015. She has several pulmonary nodules largest measuring 7 mm in size she has several also increased in size compared to prior imaging. Laboratory data shows her transaminases to be within normal limits. Alkaline phosphatase is not elevated. Lipase is elevated at 580. Problems: 1. Acute onset diarrhea 2. Lower gastrointestinal bleeding 3. Pancreatic mass with elevated lipase level.; No evidence of pancreatitis on imaging. 4. Small bowel Mass. 5. Choledocholithiasis. 6. Pulmonary nodules 7. Chronic anemia 8. Chronic kidney disease stage III Plan: -Admit to inpatient General medical service. - Send stool for giardia, culture and clostridium difficle. -Place patient on clear liquid diet. Trend hemoglobin levels every 8 hours. -GI consultation has been placed. Follow-up regarding need for further imaging and work-up for evaluation of choledocholithiasis, the pancreatic mass and the bowel lesion. -Obtain records from her oncologist at [facility]. -Her anemia is likely multifocal secondary to slow gastrointestinal losses as well as her chronic kidney disease. -She will need to follow-up with the pulmonology service as an outpatient for monitoring of her pulmonary nodules. -DVT prophylaxis with bilateral compression devices. Sharonda Chavis 03/12/18 1834: Core Measures/Misc (06/15) Sepsis (View protocol) If YES complete Sepsis Event Note If YES complete Sepsis Event Note Resident Review Statement Resident Statement: examined this patient, discussed with sales management intern, agreed with sales management intern Other Findings: Patient is 83-year-old female with past medical history of modified radical mastectomy right breast, bilateral ovarian tumor status post oophorectomy, recently completed radiotherapy (8 weeks) with Dr. Soares, a month ago came to ER with chief complaint of watery diarrhea since past 4 days. Patient states that she went [place] on [place]18, she was initially doing well, and then developed of watery diarrhea on 03/08/18. Patient is saying that she has 4-5 episodes of loose stool daily, she also reports of tenesmus, and feels the need to go to the bathroom immediately after eating or drinking anything. Patient denies any nausea or vomiting. She does report of an abdominal pain in the left lower quadrant, intermittent in nature, dull/crampy, 03/08. Patient follows with Dr. Jauregui, she has a history of angiodysplasias, and was due for a coloscopy on 03/16/18. There was also a new pancreatic and small bowel mass, the patient was unaware of. She was unsure if they were present on her old records. Patient denies any fever or any sick contacts. Labs and vitals as above Will admit the patient on general medicine floor, and monitor closely We will send out her stool for ova parasite, culture/Gram stain, C. difficile, Giardia Dr. Crain evaluated the patient, will follow Up recommendations Will start patient on rifaximin for traveler's diarrhea. Will start patient on IV fluids and check CBC in the morning Will obtain records from Dr. Olivas, her oncologist at [facility]. Patient also has elevated lipase level, will start her on clear liquids and Ringer lactate. I spoke with Dr. Crain regarding her choledocholithiasis, since patient has had an ERCP with sphincterotomy, it unlikely that she would have an obstructive stone in the common bile duct. Her LFTs are normal. We'll continue the patient on home meds. Her creatinine is elevated to 1.3, last month it was 1.1. She could be in JOSSUE due to dehydration. Will recheck creatinine in the morning and if it's back to baseline, can restart patient on lisinopril and HCTZ. Patient is on oral antidiabetics, will hold them and give her NovoLog insulin and monitor her blood sugars closely. DVT prophylaxis Alps.
--- NOTE | 2018-03-12 16:34 | Cons- Gastroenterology ---
General Information and HPI Consulting Request Date of Consult: 03/13/18 Requested By: Leonarda FERGUSON,Nalini Reason for Consult: Diarrhea, anemia, abnormal ct scan of the abdomen. Source of Information: patient, old records Exam Limitations: no limitations History of Present Illness: Ms. Lawson is an 83 year old female with a PMH significant for htn, hyperlipidemia , DM, hypothyroidism and anemia who was sent into today by her acid correction hand Dr. aJuregui after calling the office complaining of worsening diarrhea. She has been getting worked up for recurrent anemia with an EGD and pill cam that showed active small bowel bleeding around the cecum/ terminal ileum for which she has been set up for a colonoscopy this coming friday. She recently went on a cruise to the [facility] and shortly after returning she began having profuse watery, non-bloody diarrhea. She has some cramping with the diarrhea, but she is without overt pain with eating or with her bowel movements. She has not had any black tarry stool. She denies anybody else who went on the trip with her having similar symptoms. She has also nor received antibiotics recently nor can she recall eating anyrthing which may have been improperly prepared. Prior to the onset of the diarrhea she had been having normal bowel movements. In the emergency room she was hemodynamically stable and afebrile. She underwent a CAT scan which showed choledocholithiasis and a apparent mass in her pancreas and another lesion was involving her small bowel. On admission she had stool studies sent and she was empirically started on xifaxan for travelers diarrhea. She has continued to have diarrhea since admission, but overall it is improved. Allergies/Medications Allergies: Coded Allergies: ciprofloxacin (From CIPRO) (DIARRHEA 03/12/18) Home Med List: Aspirin (Aspirin*) 81 MG TAB.CHEW 1 TAB PO DAILY HEART (Reported) Diltiazem HCl (Cartia Xt) 120 MG CAP.ER.24H 1 CAP PO DAILY HEART (Reported) Ferrous Sulfate (IRON) 325 MG TABLET 1 TAB PO TID SUPPLEMENT (Reported) Glipizide (Glipizide ER) 2.5 MG TAB.ER.24 1 TAB PO DAILY DIABETES (Reported) Hydrochlorothiazide 12.5 MG TABLET 1 TAB PO DAILY WATER RETENTION (Reported) Levothyroxine Sodium 88 MCG TABLET 1 TAB PO DAILY AC THYROID (Reported) Linagliptin (Tradjenta) 5 MG TABLET 1 TAB PO DAILY DIABETES (Reported) Lisinopril 40 MG TABLET 1 TAB PO DAILY BP (Reported) Metoprolol Succinate 50 MG TAB.ER.24H 1 TAB PO DAILY HEART (Reported) Paroxetine HCl (Paxil) 20 MG TABLET 1 TAB PO DAILY DEPRESSION (Reported) Potassium Chloride (Klor-Con M20) 20 MEQ TAB.ER.PRT 1 TAB PO DAILY SUPPLEMENT (Reported) Rosuvastatin Calcium (Crestor) 20 MG TABLET 1 TAB PO DAILY CHOLESTEROL ( Reported) Current Medications: Current Medications Sig/Demetra Start time Last Medication Dose Route Stop Time Status Admin Sodium Chloride 500 ML BOLUS ONE 03/12 1115 DC 03/12 IV 03/12 1214 1236 Past History Travel History Traveled to [place] past 21 day No Medical History Neurological: NONE EENT: NONE Cardiovascular: hypertension, hyperlipidemia, aortic valve replacement Respiratory: NONE Gastrointestinal: hx of angiodysplasia hx of gastritis hx diverticular disease Hepatic: CHOLEDOCHOLITHIASIS Renal: NONE Musculoskeletal: NONE Psychiatric: NONE Endocrine: diabetes, hypothyroidism, CALCIUM DEPOSITS ON THYROID Blood Disorders: anemia Cancer(s): breast cancer RESIDENTIAL PROGRAM WORKER/Reproductive: hx of ovarian mass Surgical History Surgical History: hysterectomy (TOTAL), Partial Thyroidectomy, Modified radical disssection of the right breast, Hysterectomy, CABG, AVR GALL STONE REMOVAL ERCP Psychosocial History Who Do You Live With? self Services at Home: None Primary Language: Mongolian ETOH Use: denies use Illicit Drug Use: denies illicit drug use Functional Ability ADLs Independent: dressing, eating, toileting, bathing. Ambulation: independent IADLs Independent: shopping, housework, finances, food prep, telephone, transportation , medication admin. Review of Systems Review of Systems Constitutional: Reports: malaise, weakness. Denies: diaphoresis, fever, unexplained weight loss. EENTM: Denies: no symptoms. Cardiovascular: Denies: no symptoms. Respiratory: Denies: no symptoms. GI: Reports: see HPI. Genitourinary: Denies: no symptoms. Musculoskeletal: Denies: no symptoms. Skin: Denies: no symptoms. Neurological/Psychological: Denies: no symptoms. Hematologic/Endocrine: Reports: bleeding. Immunologic/Allergic: Denies: no symptoms. All Other Systems: Reviewed and Negative Exam & Diagnostic Data Vital Signs and I&O Vital Signs Date Time Temp Pulse Resp B/P B/P Pulse O2 O2 Flow FiO2 Mean Ox Delivery Rate 03/12 1330 97.7 59 18 159/70 98 Room Air 03/12 0936 96.4 63 15 134/61 98 Room Air Room Air Intake & Output 03/12 0400 03/11 0400 03/10 0400 Intake Total Output Total Balance Patient 185 lb Weight Weight Reported by Patient Measurement Method Results Pertinent Lab Results: Laboratory Tests 03/12 03/12 1148 1138 Chemistry Sodium (137 - 145 mmol/L) 141 Potassium (3.5 - 5.1 mmol/L) 3.9 Chloride (98 - 107 mmol/L) 106 Carbon Dioxide (22 - 30 mmol/L) 25 Anion Gap (5 - 16) 10 BUN (7 - 17 mg/dL) 17 Creatinine (0.5 - 1.0 mg/dL) 1.3 H Estimated GFR (>60 ml/min) 39 L BUN/Creatinine Ratio (7 - 25 %) 13.1 Glucose (65 - 99 mg/dL) 151 H Calcium (8.4 - 10.2 mg/dL) 9.1 Total Bilirubin (0.2 - 1.3 mg/dL) 0.4 Direct Bilirubin (< 0.4 mg/dL) 0.1 AST (14 - 36 U/L) 24 ALT (9 - 52 U/L) 30 Alkaline Phosphatase (<127 U/L) 57 Total Protein (6.3 - 8.2 g/dL) 5.9 L Albumin (3.5 - 5.0 g/dL) 3.2 L Lipase (23 - 300 U/L) 580 H Hematology CBC w Diff NO MAN DIFF REQ WBC (4.8 - 10.8 /CUMM) 5.4 RBC (4.20 - 5.40 /CUMM) 3.20 L Hgb (12.0 - 16.0 G/DL) 8.8 L Hct (37 - 47 %) 27.0 L MCV (81.0 - 99.0 FL) 84.4 MCH (27.0 - 31.0 PG) 27.6 MCHC (33.0 - 37.0 G/DL) 32.7 L RDW (11.5 - 14.5 %) 15.1 H Plt Count (130 - 400 /CUMM) 246 MPV (7.4 - 10.4 FL) 6.6 L Gran % (42.2 - 75.2 %) 81.7 H Lymphocytes % (20.5 - 51.1 %) 7.9 L Monocytes % (1.7 - 9.3 %) 8.6 Eosinophils % (0 - 5 %) 1.1 Basophils % (0.0 - 2.0 %) 0.7 Absolute Granulocytes (1.4 - 6.5 /CUMM) 4.4 Absolute Lymphocytes (1.2 - 3.4 /CUMM) 0.4 L Absolute Monocytes (0.10 - 0.60 /CUMM) 0.5 Absolute Eosinophils (0.0 - 0.7 /CUMM) 0.1 Absolute Basophils (0.0 - 0.2 /CUMM) 0 Urines Urinalysis LIGHT H Urine Color (YEL,AMB,STR) YEL Urine Clarity (CLEAR) CLEAR Urine pH (5.0 - 8.0) 6.0 Ur Specific [place] (1.001 - 1.035) >= 1.030 Urine Protein (NEG,<30 MG/DL) TRACE H Urine Ketones (NEG) NEG Urine Nitrite (NEG) NEG Urine Bilirubin (NEG) NEG Urine Urobilinogen (0.1 - 1.0 EU/dl) 0.2 Ur Leukocyte Esterase (NEG) TRACE H Ur Microscopic SEDIMENT EXAMINED Urine WBC (0 - 2 /HPF) 5-10 H Ur Epithelial Cells (NONE,FEW) MANY H Urine Bacteria (NEG/NONE) FEW H Urine Hemoglobin (NEG) NEG Urine Glucose (N MG/DL) NEG Imaging/Other Studies: Pill cam 02/03/18: Reason for Referral Iron Deficiency Anemia Patient Data Esophageal passage time: 0m 5s, Gastric passage time: 0h 8m Procedure Information and Findings Procedure:Procedure: After getting written informed consent and after an overnight fast and preparation with miralax and simethicone the patient swallowed a small bowel pill cam with 8oz of water and additional simethicone. The patient wore a sensor vest and a data recorder until the blue indicator light went off at which point the equipment was returned an the images were downloaded and reviewed. Study quality: Some leftover bile in the proximal small bowel. Overall small bowel visualization was good. Findings: The visualized esophageal and gastric mucosa was grossly normal in appearance. There was a polyp that appeared pedunculated noted about 2 hours and 15 minutes into the study and likely corresponded to the distal jejunum or proximal ileum. The lesion was not noted to be actively bleeding or clearly ulcerated, but there was a scant amount of blood seen several minutes after the polyp was visualized. Around the ileocecal valve there was a focal area of colonic mucosa which appeared friable and possibly represented a mass. There was also some fresh blood in this region as well. In the ileum there was a prominent fold with normal overlying villi with a possible ulceration vs a prominent lymphangiectasia. There was also a prominent lymphangiectasia in the mid to distal jejunum. The remainder of the visualized small bowel was grossly normal in appearance with normal-appearing villi. The colonic mucosa was mostly obscured by leftover stool. Summary and Recommendations Summary: 1. Small bowel polyp with scant amount of blood in close proximity at 2 hours 15 minutes into the study likely representing mid to distal jejunum. 2. Friable mucosa with scant amount of active bleeding at ileocecal valve/cecum potentially representing a mass. 3. Prominent ileal fold versus ileal polyp versus prominent lymphangiectasia. 3. One prominent jejunal lymphangiectasia. SERVICE DATE: 03/12/18 EXAM TYPE: CAT - CT ABD & PELVIS W IV CONTRAST EXAMINATION: CT ABDOMEN AND PELVIS WITH CONTRAST CLINICAL INFORMATION: Lower abdominal pain with diarrhea COMPARISON: Clinical history studies, the most recent chest CT dictated 09/12/2015 TECHNIQUE: Multidetector volumetric imaging was performed of the abdomen and pelvis following IV administration of 95 mL of Optiray 320 intravenous contrast. Sagittal and coronal reformatted images were obtained on the technologist's workstation. DLP: 528 mGy-cm FINDINGS: LUNG BASES: Several nodules at the lung bases, including a 7 mm nodule in the lingula inferiorly, end a 7 mm nodule in the right lower lobe. These have slightly increased in size. LIVER, GALLBLADDER, AND BILIARY TREE: Mild biliary ductal dilatation, similar to the previous study. There are no liver lesions. Coarse calcifications of the gallbladder which are less prominent than the prior study. There is a 5 mm calcification within the mid aspect of the common bile duct, and a 2 mm calcification in the distal aspect of the common bile duct. PANCREAS: The pancreatic head is enlarged and slightly heterogeneous. This is new or significantly more conspicuous from the previous study and measures approximately 3 cm in size, concerning for a pancreatic mass. Pancreatic body is atrophied with a stable cyst/pseudocyst. SPLEEN: Unremarkable. ADRENAL GLANDS: Stable 1.5 cm low-density lesion in the left adrenal gland. KIDNEYS AND URETERS: There is a 1.2 cm lesion at the superior pole of the left kidney which is exophytic. This measured 1.0 cm on a 2015 study. BLADDER: Unremarkable. GASTROINTESTINAL TRACT: There is a soft tissue mass in the anterior lower abdomen measuring approximately 4.4 x 4.7 x 5.1 cm arising from or invading into the posterior wall of a pelvic small bowel loop. This is a new finding. ABDOMINAL WALL: No significant hernia is appreciated. LYMPH NODES: There are enlarged peripancreatic lymph nodes including a 1.7 lymph node at the bifurcation of the superior mesenteric artery. VASCULAR: Dilated and tortuous left ovarian vein as demonstrated previously. PELVIC VISCERA: The uterus is been removed. OSSEOUS STRUCTURES: No suspicious lesions or acute abnormality. IMPRESSION: Heterogeneous 3.0-3.5 cm mass of the pancreatic head. Enlarged peripancreatic lymph nodes. This is new since 09/12/2015. Choledocholithiasis with 5 mm and 2 mm calculi and mild intrahepatic biliary ductal dilatation that has slightly increased. There is a soft tissue mass in the lower abdomen anteriorly, arising from or invading the posterior wall of a small bowel loop. This measures 4.4 x 4.7 x 5.1 cm and is a new finding. There is a 1.2 cm left renal lesion at the superior pole which measured 1.0 cm in 2015. Several lower lobe pulmonary nodules, the largest measuring 7 mm in the lingula and right lower lobe, which have slightly increased in size. Assessment/Plan Assessment/Recommendations: Assessment: Ms. Lawson is an 83 year old female with multiple medical problems including recurrent iron deficiency anemia who presented to yesterday with worsening diarrhea which I suspect is related to a bout of viral gastroenteritis. In her work up for anemia she underwent a pill cam that showed what was felt to be an terminal ileum lesion for which she was to have a colonoscopy on Friday, but on reviewing the ct scan with radiolog the lesion appreciated on the pill cam is not in the terminal ileum and therefore a colonoscopy is unlikely to reach it. While it still may be necessary to pursue a colonoscopy of flex sig if her diarrhea persists I will tentaively table that procedure, especially as she appears to have a pancreatic mass on the same ct scan which is quite likely a pancreatic malignancy. It also appears that she has lung nodules which suggests she may aleady have metatstatic disease. She has also been noted to have choledocholithiasis on her CAT scan, but she is without any symptoms of biliary colic and her LFTs are normal. I do not feel a choledocholithiasis is related to her current symptoms or to her anemia and it is likely be stones will pass without incident considering she has had an ERCP with sphincterotomy in 2016. Recommendations: 1. Follow-up stool studies. 2. Continue a 3 day course of Xifaxan for traveler's diarrhea. 3. If stool studies are negative and diarrhea persisted is okay to use Imodium or Lomotil as needed. 4. If her diarrhea persists and stool studies are negative and her symptoms are not able to be controlled with antimotility agents consideration will be given for a diagnostic flexible sigmoidoscopy or colonoscopy early next week. 5. We'll tentatively plan for a outpatient referral for an endoscopic ultrasound to evaluate the pancreatic lesion. 6. Continue oral iron. 7. Follow daily CBCs and transfuse as needed to maintain her hemoglobin greater than 7. 8. Notify GI for signs of overt GI bleeding. I will continue to follow this patient and make further recognitions based on her clinical course and results of repeat blood work and stool testing. Problem List: 1. SEVERE ANEMIA 2. Diarrhea Copies To: Noreen FERGUSON,Darci Beckwith. Consult Acknowledgment - Thank you for your consult request.
[2018-03-12 18:35] VITALS: BP 158/72
--- NOTE | 2018-03-12 19:12 | Event Note ---
Event Note Event Note: Since the pharmacy does not carry 300 mg Rifaximin, will start patient on [address] Crain is agreeable.
--- NOTE | 2018-03-12 19:33 | Event Note ---
Event Note Event Note: Medication list obtained from [facility] [phone]: Diltiazem 120mg daily Linagliptin 5mg daily Rousuvastatin 20mg daily Glipizide 2.5mg Hydrochlorothiazide 12.5mg daily Levothyroxine 88 micrograms daily Metoprolol 50mg daily Paroxetine 20mg daily Postassium Chloride 20mEq
[2018-03-12 22:18] VITALS: BP 150/68
[2018-03-13 06:58] VITALS: BP 132/68
[2018-03-13 08:02] LABS: ABSOLUTE BASOPHIL COUNT 0 /CUMM (0.0-0.2); ABSOLUTE EOSINOPHIL COUNT 0.1 /CUMM (0.0-0.7); ABSOLUTE GRANULOCYTE CT 3.4 /CUMM (1.4-6.5); ABSOLUTE LYMPH COUNT 0.3 /CUMM (1.2-3.4); ABSOLUTE MONOCYTE COUNT 0.4 /CUMM (0.10-0.60); BASOPHIL % 0.7 % (0.0-2.0); EOSINOPHIL % 1.2 % (0-5); GRANULOCYTE % 80.9 % (42.2-75.2); HEMATOCRIT 24.2 % (37-47); MEAN CORPUSCULAR HGB 27.9 PG (27.0-31.0); MEAN CORPUSCULAR HGB CONC 33.4 G/DL (33.0-37.0); MEAN CORPUSCULAR VOLUME 83.6 FL (81.0-99.0); MEAN PLATELET VOLUME 6.8 FL (7.4-10.4); PLATELET COUNT 198 /CUMM (130-400); RBC DISTRIBUTION WIDTH 15.3 % (11.5-14.5); RED BLOOD CELL CT 2.89 /CUMM (4.20-5.40); WHITE BLOOD CELL COUNT 4.2 /CUMM (4.8-10.8)
[2018-03-13 08:12] VITALS: BP 163/67
--- NOTE | 2018-03-13 10:48 | PN- Housestaff ---
Grayson FERGUSON,Macria 03/13/18 1048: Subjective Follow-up For: Diarrhea GI Bleed Pancreatic mass Small bowel mass Diabetes Subjective: Patient was seen and examined today. Reports feeling anxious about her diagnosis and the future. Reports diarrhea has improved. Tolerating clear liquid diet. Denies n/v, abdominal pain. No acute events overnight. Review of Systems Constitutional: Reports: see HPI. Objective Last 24 Hrs of Vital Signs/I&O Vital Signs Date Time Temp Pulse Resp B/P B/P Pulse O2 O2 Flow FiO2 Mean Ox Delivery Rate 03/13 1720 64 131/64 03/13 1451 98.0 64 20 131/64 97 Room Air 03/13 0825 98.0 72 20 163/67 06 0812 98.0 72 20 163/67 98 Room Air 03/13 0658 98.7 75 20 132/68 97 Room Air 03/12 2218 98.2 62 20 150/68 96 Room Air Intake & Output 03/13 1600 03/13 0800 03/13 0000 Intake Total 700 300 Output Total 100 Balance -100 700 300 Intake, IV 600 Intake, Oral 100 300 Number 3 Bowel Movements Output, Urine 100 Patient 185 lb Weight Weight Reported by Patient Measurement Method Physical Exam General Appearance: Alert, Cooperative, No Acute Distress Sepsis Skin Exam (color): Normal for Ethnicity HEENT: Atraumatic, Mucous Membr. moist/pink Cardiovascular: Regular Rate, Normal S1, Normal S2 Lungs: Clear to Auscultation, Normal Air Movement Abdomen: Normal Bowel Sounds, Soft, No Tenderness Extremities: No Clubbing, No Cyanosis, No Edema, Normal Pulses, No Tenderness/ Swelling Current Medications: Current Medications Sig/Demetra Start time Last Medication Dose Route Stop Time Status Admin Acetaminophen 650 MG Q8P PRN 03/12 1900 AC PO Aspirin 81 MG DAILY 03/13 0900 AC 03/13 PO 0824 Atorvastatin Calcium 80 MG 1700 03/13 1700 AC 03/13 PO 1720 Hydrochlorothiazide 12.5 MG DAILY 03/13 1345 AC 03/13 PO 1720 Insulin Aspart 0 TIDAC 03/13 0800 AC 03/13 SC 0824 Lactated Ringer's 1,000 ML Q13H 03/12 1900 AC 03/13 IV 0826 Levothyroxine Sodium 0.088 MG DAILY AC 03/13 0700 AC 03/13 PO 0557 Lisinopril 40 MG DAILY 03/13 1345 AC 03/13 PO 1720 Metoprolol Succinate 50 MG DAILY 03/13 0900 AC 03/13 PO 0825 Paroxetine HCl 20 MG DAILY 03/13 0900 AC 03/13 PO 0824 Patient Medication 1 ED ONE ONE 03/13 1400 DC Teaching ED 03/13 1401 Rifaximin 550 MG DAILY 03/13 0900 DC 03/13 PO 0825 Rifaximin 200 MG TID 03/12 1633 DC PO Vancomycin HCl 125 MG Q6 03/13 1439 AC 03/13 PO 1721 Last 24 Hrs of Lab/Vineet Results Last 24 Hrs of Labs/Mics: Laboratory Tests 03/13/18 0716: Anion Gap 7, Estimated GFR 53 L, BUN/Creatinine Ratio 11.0, CBC w Diff NO MAN DIFF REQ, RBC 2.89 L, MCV 83.6, MCH 27.9, MCHC 33.4, RDW 15.3 H, MPV 6.8 L, Gran % 80.9 H, Lymphocytes % 7.4 L, Monocytes % 9.8 H, Eosinophils % 1.2, Basophils % 0.7, Absolute Granulocytes 3.4, Absolute Lymphocytes 0.3 L, Absolute Monocytes 0.4, Absolute Eosinophils 0.1, Absolute Basophils 0 Assessment/Plan Assessment: Patient is an 83-year-old female with past medical history of hypertension, depression,chronic kidney disease, anxiety and depression, hypothyroidism, right sided breast cancer status post radical mastectomy, hysterectomy, ovarian cancer status post bilateral nephrectomy and recent completion of 8 week course of radiation therapy, history of chronic anemia requiring transfusions over the past few months, history of GI bleed s/p EGD and colonoscopy in 2011 showing cecal vascular malformation/ectasias, diverticulosis and gastritis, and enteroscopy showing small bowel bleeding secondary to GI angiodysplasia presenting this admission with chief complaint of diarrhea, dark stools and small amount of brb. On admission: Patient's vital signs are stable. H/H is low however appears close to her baseline. Patient continues to have diarrhea. Patient is very anxious and tearful of her recent CT results. Will need to work patient up for possible cause of diarrhea and GI bleed including infectious causes. Further workup of anemia per GI. Today: Patient remains afebrile. Stool sent for c.dif came back positive, patient started on PO vancomycin, placed on contact precautions, rifaximin stopped. Patient was seen by GI today, will not proceed with colonoscopy/EGD inpatient unless patient acutely worsens. H/H remains stable at 8.2. I spoke to Dr. Jain , patient's oncologist, and she will have a biopsy of the pancreatic mass done next week. Unlikely pancreatic mass is secondary to ovarian cancer. 1. Clostridium dificile diarrhea 2. GI Bleed 3. Pancreatic mass, mass in small intestine seen on CT 4. History of ovarian cancer and breast cancer s/p recent radiation therapy for ovarian cancer 5. Anemia requiring blood transfusions Plan: Admitted to the general medicine floor for further management GI consulted Repeat CBC q8h Monitor vitals q8h Avoid NSAIDs, blood thinners Records requested from oncologist C.dif positive - started on PO vancomycin Stool cultures, ova and parasite and c.dif Continue home meds- listed in event note DVT PPx: ALPS only Diet: clear liquid diet Code: full code Note: Please contact patient's daughter, Elvia Davis, for any health related. Problem List: 1. Clostridium difficile diarrhea Pain Ratin Pain Location: n/a Pain Goal: Remain pain free Pain Plan: PRN Tomorrow's Labs & Rationales: cbc bep Leonarda FERGUSON,Nalini 03/13/18 1139: Attending MD Review Statement Attending Statement Attending MD Statement: examined this patient, discuss w/resident/PA/PLANT MAINTENANCE MANAGER, agreed w/resident/PA/PLANT MAINTENANCE MANAGER, discussed with family, reviewed EMR data (avail), discussed with nursing, discussed with case mgmt, amended to note Attending Assessment/Plan: Patient seen and examined. Resting comfortably not in any acute distress. No issues overnight. Denies any bloody stools overnight. She reports that diarrhea is improving. Denies nausea vomiting. Denies abdominal pain. Abdomen is nontender on examination. She is very concerned about the diagnosis of pancreatic and small bowel masses. Problems: 1. Acute onset diarrhea 2. Lower gastrointestinal bleeding 3. Pancreatic mass with elevated lipase level.; No evidence of pancreatitis on imaging. 4. Small bowel Mass. 5. Choledocholithiasis. 6. Pulmonary nodules 7. Chronic anemia 8. Chronic kidney disease stage III Plan: -Diarrhea is improving. She has been started on rifaximin as recommended by the GI service. -Hemoglobin level is stable. Repeat hemoglobin level in a.m. Transfuse for hemoglobin level less than 7. -Recommend contacting patient's oncology service to discuss current CT findings. Follow-up with Dr. Crain patient's structural steel fitter regarding need for any further imaging. Long-term management should be coordinated with her oncology service. -Mobilize patient as tolerated. -She was scheduled to undergo a colonoscopy in the outpatient next week. Follow -up with the gastroenterology service regarding discharge planning.
--- NOTE | 2018-03-13 14:43 | Patient Discharge Instructions ---
Discharge Instructions General Discharge Information You were seen/treated for: Clostridium Dificile Pancreatic and Small Bowel Mass Special Instructions: 1. Follow up with your pcp, oncologist, embalmer apprentice and river rat 2. Please complete the entire course of antibiotics. 3. Please note that medication-hydrochlorothiazide (blood pressure medication) has been temporarily discontinued because of diarrhea. Please discuss with your primary care physician within one week. Acute Coronary Syndrome Inclusion Criteria At DC or during hospital stay patient has or had the following: ACS DIAGNOSIS No Discharge Core Measures Meds if any: Prescribed or Continued at Discharge Meds if any: NOT Prescribed or Continued at Discharge Congestive Heart Failure Inclusion Criteria At DC or during hospital stay patient has or had the following: CHF DIAGNOSIS No Discharge Core Measures Meds if any: Prescribed or Continued at Discharge Meds if any: NOT Prescribed or Continued at Discharge Cerebrovascular accident Inclusion Criteria At DC or during hospital stay patient has or had the following: CVA/TIA Diagnosis No Discharge Core Measures Meds if any: Prescribed or Continued at Discharge Meds if any: NOT Prescribed or Continued at Discharge Venous thromboembolism Inclusion Criteria VTE Diagnosis No VTE Type NONE VTE Confirmed by (Test) NONE Discharge Core Measures - Per Current guidelines, there needs to be overlap - treatment for the first 5 days of Warfarin therapy. - If discharged on Warfarin prior to 5 days of - overlap therapy, the patient will need to be - assessed for post discharge needs including - *Post discharge parental anticoagulation - *Warfarin and/or parental anticoagulation education - *Follow up date to check INR post discharge At least 5 days overlap therapy as Inpatient No Meds if any: Prescribed or Continued at Discharge Note: Overlap Therapy is Warfarin and Anticoagulant Meds if any: NOT Prescribed or Continued at Discharge
[2018-03-13 14:51] VITALS: BP 131/64
[2018-03-13] MEDS ORDERED: VANCOMYCIN HCL125 MG PO ×2 (14:57→19:04)
[2018-03-13 22:06] VITALS: BP 122/62
[2018-03-14 06:46] VITALS: BP 164/78
--- NOTE | 2018-03-14 08:47 | PN- Housestaff ---
Greg FERGUSON,Aleksandr 03/14/18 0847: Subjective Follow-up For: c diff pancreatic mass Subjective: no new complaints persistent diarrhea but improved afebrile, no pain CBC stable Review of Systems Constitutional: Reports: see HPI. Objective Last 24 Hrs of Vital Signs/I&O Vital Signs Date Time Temp Pulse Resp B/P B/P Pulse O2 O2 Flow FiO2 Mean Ox Delivery Rate 03/14 1351 152/70 03/14 0823 148/70 03/14 0822 164/78 03/14 0646 98.2 88 18 164/78 96 Room Air 03/13 2206 98.0 72 18 122/62 95 03/13 1720 64 131/64 03/13 1600 Room Air Intake & Output 03/14 1600 03/14 0800 03/14 0000 Intake Total 600 500 Output Total 600 1 450 Balance -600 599 50 Intake, IV 600 Intake, Oral 500 Number 1 3 Bowel Movements Output, Stool 1 100 Output, Urine 600 350 Patient 84 kg Weight Weight Bed scale Measurement Method Physical Exam General Appearance: Alert, Oriented X3, Cooperative, No Acute Distress Cardiovascular: Regular Rate, Normal S1, Normal S2, No Murmurs Lungs: Clear to Auscultation, Normal Air Movement Abdomen: Normal Bowel Sounds, Soft, No Tenderness, No Masses Extremities: No Clubbing, No Cyanosis, No Edema, Normal Pulses Current Medications: Current Medications Sig/Demetra Start time Last Medication Dose Route Stop Time Status Admin Acetaminophen 650 MG Q8P PRN 03/12 1900 DCD PO Aspirin 81 MG DAILY 03/13 0900 DCD 03/14 PO 0824 Atorvastatin Calcium 80 MG 1700 03/13 1700 DCD 03/13 PO 1720 Ferrous Sulfate 325 MG DAILY 03/14 1026 DCD 03/14 PO 1135 Hydrochlorothiazide 12.5 MG DAILY 03/13 1345 DCD 03/14 PO 0824 Insulin Aspart 0 TIDAC 03/13 0800 DCD 03/14 SC 1239 Lactated Ringer's 1,000 ML Q13H 03/12 1900 DCD 03/13 IV 2204 Levothyroxine Sodium 0.088 MG DAILY AC 03/13 0700 DCD 03/14 PO 0548 Lisinopril 40 MG DAILY 03/13 1345 DCD 03/14 PO 0823 Metoprolol Succinate 50 MG DAILY 03/13 0900 DCD 03/14 PO 0822 Paroxetine HCl 20 MG DAILY 03/13 0900 DCD 03/14 PO 0824 Vancomycin HCl 125 MG Q6 03/13 1439 DCD 03/14 PO 1314 Last 24 Hrs of Lab/Vineet Results Last 24 Hrs of Labs/Mics: Laboratory Tests 03/14/18 0745: Anion Gap 8, Estimated GFR 53 L, BUN/Creatinine Ratio 10.0, CBC w Diff NO MAN DIFF REQ, RBC 3.10 L, MCV 83.8, MCH 27.5, MCHC 32.9 L, RDW 15.2 H, MPV 7.1 L , Gran % 82.5 H, Lymphocytes % 7.2 L, Monocytes % 8.4, Eosinophils % 1.4, Basophils % 0.5, Absolute Granulocytes 3.8, Absolute Lymphocytes 0.3 L, Absolute Monocytes 0.4, Absolute Eosinophils 0.1, Absolute Basophils 0 Assessment/Plan Assessment: Clostridium dificile diarrhea Afebrile Stool toxin positive for C diff PO Vancomycin 125mg po q6h x 10 day course GI Bleed and anemia requiring blood transfusions: CBC stable Mass in small intestine seen on CT Gastroenterology consulted, appreciate recommendations 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 Clostridium difficile diarrhea 2. Diarrhea 3. Chronic anemia 4. Lung nodule 5. Pancreatic cyst Pain Ratin Pain Location: n/a Pain Goal: Pain 4 or less Pain Plan: prn Tomorrow's Labs & Rationales: none, discharge Tarun Bhatti 03/14/18 1112: Attending MD Review Statement Attending Statement Attending MD Statement: examined this patient, discuss w/resident/PA/BALING MACHINE OPERATOR, agreed w/resident/PA/BALING MACHINE OPERATOR, discussed with family, reviewed EMR data (avail), discussed with nursing, discussed with case mgmt, reviewed images, amended to note Attending Assessment/Plan: Patient seen/examined bedside. Patient presented with dairreha and in improvement. H&H stable. Patient tested for c diff and being treated for PO vancomycin. GI follow up as outpatient with EUS at [facility] for incidental pancreatic mass and biopsy upon discharge. She is hemodynamically stable.
[2018-03-14 08:54] LABS: ABSOLUTE BASOPHIL COUNT 0 /CUMM (0.0-0.2); ABSOLUTE EOSINOPHIL COUNT 0.1 /CUMM (0.0-0.7); ABSOLUTE GRANULOCYTE CT 3.8 /CUMM (1.4-6.5); ABSOLUTE LYMPH COUNT 0.3 /CUMM (1.2-3.4); ABSOLUTE MONOCYTE COUNT 0.4 /CUMM (0.10-0.60); BASOPHIL % 0.5 % (0.0-2.0); EOSINOPHIL % 1.4 % (0-5); GRANULOCYTE % 82.5 % (42.2-75.2); MEAN CORPUSCULAR HGB 27.5 PG (27.0-31.0); MEAN CORPUSCULAR HGB CONC 32.9 G/DL (33.0-37.0); MEAN CORPUSCULAR VOLUME 83.8 FL (81.0-99.0); MEAN PLATELET VOLUME 7.1 FL (7.4-10.4); PLATELET COUNT 206 /CUMM (130-400); RBC DISTRIBUTION WIDTH 15.2 % (11.5-14.5); WHITE BLOOD CELL COUNT 4.6 /CUMM (4.8-10.8)
[2018-03-14] MEDS ORDERED: VANCOMYCIN HCL5 G1 PO (12:00)
[2018-03-14] MEDS ORDERED: VANCOMYCIN HCL125 MG PO (13:34)
[2018-03-14 13:51] VITALS: BP 152/70
== END 2018-03-14 13:57 | DRG 372 ==
LOC: ERH 09:31 → 2NA 15:39 → ERHI 15:39 → ENRESERV 16:11 → CANRESERV 16:11 → ENRESERV 16:32 → EDTRNSPT 16:37 → ENTRNSPT 16:37 → EDTRNSPT 16:41 → EDTRNSPTSTS 16:41 → EDTRNSPT 16:55 → CMPTRNSPT 17:09 → 2NA 17:29 → ENPENDDIS 03-14 13:37 → 2NA 03-14 13:57
PROVIDERS: Internal Medicine; Physician Assistant; Student in an Organized Health Care Education/Training Program
DX: A04.72 Enterocolitis due to Clostridium difficile, not specified as recurrent (principal); K92.2 Gastrointestinal hemorrhage, unspecified; C56.9 Malignant neoplasm of unspecified ovary; K86.2 Cyst of pancreas; I12.9 Hypertensive chronic kidney disease with stage 1 through stage 4 chronic kidney disease, or unspecified chronic kidney disease; N18.3 Chronic kidney disease, stage 3 (moderate); D64.9 Anemia, unspecified; E11.9 Type 2 diabetes mellitus without complications; Z79.84 Long term (current) use of oral hypoglycemic drugs; F32.9 Major depressive disorder, single episode, unspecified; F41.9 Anxiety disorder, unspecified; Z85.3 Personal history of malignant neoplasm of breast; Z85.43 Personal history of malignant neoplasm of ovary; Z92.3 Personal history of irradiation; Z90.11 Acquired absence of right breast and nipple; Z88.1 Allergy status to other antibiotic agents; Z90.710 Acquired absence of both cervix and uterus; E89.0 Postprocedural hypothyroidism; R91.1 Solitary pulmonary nodule
CPT/HCPCS: 2NAP; 36592; 74177; 81001; 82436; 87015; 87045; 87328; 87329; 87899; 87899-59; J3490; J7040; J7120